=== PATIENT | male | born 2000 | race Native Hawaiian/Other Pacific Islander ===

== ENCOUNTER 2021-04-29 05:17 | Emergency (ER) | payer OTHER ==
[~2021-04-29] VITALS: Ht 180.3 cm; Wt 98.6 kg
[2021-04-29] MEDS ORDERED: LIDOCAINE 5% (LIDODERM) PATCH TD ONE (07:55)
[2021-04-29 09:32] VITALS: BP 122/68
[2021-04-29] MEDS ORDERED: LIDO5DIS41 TOP (10:04)
[2021-04-29] MEDS ORDERED: IBUP80TA PO (10:04)
[2021-04-29] MEDS ORDERED: **NOTE PATIENT COMMENT** MISC XX SCH (21:00)
== END 2021-04-29 10:31 | disposition home or self-care (01) ==
LOC: M ED 05:17
DX: S13.4XXA Sprain of ligaments of cervical spine, initial encounter (principal); S09.90XA Unspecified injury of head, initial encounter; V49.40XA Driver injured in collision with unspecified motor vehicles in traffic accident, initial encounter; Y92.9 Unspecified place or not applicable; Y93.9 Activity, unspecified; Y99.9 Unspecified external cause status

== ENCOUNTER 2021-06-01 10:53 | Emergency (ER) | payer OTHER ==
[~2021-06-01] VITALS: Ht 180.3 cm; Wt 101.8 kg
[~2021-06-01 10:53] MED LIST: IBUP80TA PO; LIDO5DIS41 TOP
[2021-06-01] MEDS ORDERED: [UNRECOGNIZED DRUG - CODE] AU (13:34)
[2021-06-01 13:44] VITALS: BP 141/77
== END 2021-06-01 14:00 | disposition home or self-care (01) ==
LOC: M ED 10:53
DX: H61.22 Impacted cerumen, left ear (principal)